=== PATIENT | male | born 1980 | race Caucasian/White ===

== ENCOUNTER 2017-11-22 02:47 | Emergency (ER) | payer BC, OTHER ==
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
[2017-11-22 02:57] LABS: BASO % 0.8 % (0-6); EOS % 3.2 % (0-6); GRAN % 53.4 % (47-80); HEMATOCRIT 42.1 % (42.0-52.0); HEMOGLOBIN 14.1 gm/dl (14.0-18.0); LYMPH % 35.3 % (16-45); MEAN CELL VOLUME 88.4 fl (81-97); MEAN CORPUSCULAR HEMOGLOBIN 29.6 pg (27-33); MEAN CORPUSCULAR HGB CONC 33.5 g/dl (32-36); MEAN PLATELET VOLUME 10.1 fl (7.4-10.4); MONO % 7.3 % (0-9); PLATELET COUNT 312 K/uL (130-400); RED BLOOD COUNT 4.76 M/uL (4.40-5.70)
[2017-11-22 03:07] LABS: PROTHROMBIN TIME (PATIENT) 10.3 SECONDS (9.5-12.1)
[2017-11-22 03:09] LABS: BLOOD UREA NITROGEN 23 mg/dL (6-20); EST GLOMERULAR FILTRATION RATE > 60 mL/min
[2017-11-22 03:11] LABS: GLUCOSE,RANDOM 119 mg/dL (74-109)
[2017-11-22 03:14] LABS: ALB/GLOB RATIO 1.7 (1.1-1.8); ALBUMIN 4.4 g/dL (4.0-5.0); ALKALINE PHOSPHATASE 66 U/L (40-129); ALT/SGPT 38 U/L (<41); AST/SGOT 28 U/L (10.0-50.0)
[2017-11-22] MEDS: ONDANSETRON HCL IV 4 MG/2 ML VIAL IVP ONE (04:05)
[2017-11-22] MEDS: FENTANYL PF 100MCG/2ML VIAL IVP ONE (04:05)
[2017-11-22] MEDS: 0.9 % SODIUM CHLORIDE 1000ML 1,000 ML IV SCH (04:06)
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
== END 2017-11-22 04:42 | disposition home or self-care (01) ==
LOC: ER 02:47
DX: S30.1XXA Contusion of abdominal wall, initial encounter (principal); S20.219A Contusion of unspecified front wall of thorax, initial encounter; S20.229A Contusion of unspecified back wall of thorax, initial encounter; S00.93XA Contusion of unspecified part of head, initial encounter; S40.012A Contusion of left shoulder, initial encounter; S50.02XA Contusion of left elbow, initial encounter; S50.312A Abrasion of left elbow, initial encounter; S40.212A Abrasion of left shoulder, initial encounter; S30.810A Abrasion of lower back and pelvis, initial encounter; R51 Headache; Y92.63 Factory as the place of occurrence of the external cause; Y99.0 Civilian activity done for income or pay; E03.9 Hypothyroidism, unspecified; I10 Essential (primary) hypertension; F17.210 Nicotine dependence, cigarettes, uncomplicated
CPT/HCPCS: 99284 ×2; 96374; 96375; 85025; 85610; 80053; 73080; 73030; 72125; 71260; 70450; 74177; Q9967; J2405; J3010; J7030